=== PATIENT | male | born 1970 | race African-American/Black ===

== ENCOUNTER 2019-04-21 12:33 | Emergency (ER) | payer MEDICAID ==
[~2019-04-21] VITALS: Ht 180.3 cm; Wt 72.6 kg
[2019-04-21] MEDS ORDERED: SPIRIVA INH ×2 (13:07→14:15)
[2019-04-21] MEDS ORDERED: ADVAIR HFA 230M12 GM INH ×2 (13:07→14:14)
[2019-04-21] MEDS ORDERED: SYMBICORT80 MCG/4.1 INH ×2 (13:07→14:15)
[2019-04-21 13:28] LABS: ABSOLUTE EOSINOPHILS 0.1 thou/uL (0.0-0.7); ABSOLUTE LYMPHOCYTES 1.6 thou/uL (0.8-5.3); ABSOLUTE MONOCYTES 0.6 thou/uL (0.0-1.2); ABSOLUTE NEUTROPHILS 3.7 thou/uL (1.6-8.1); BASOPHILS 0.7 %; EOSINOPHILS 1.2 %; HEMATOCRIT 47.5 % (42.0-52.0); HEMOGLOBIN 16.5 gm/dL (14.0-18.0); LYMPHOCYTES 27.2 %; MCH 29.8 pg (26.0-34.0); MCHC 34.7 g/dL (28.0-37.0); MCV 85.9 fL (80.0-100.0); MONOCYTES 9.4 %; MPV 7.6 fl. (7.2-11.1); NUCLEATED RBCS 0 /100WBC; PLATELET COUNT* 204 thou/uL (150-400); POLYS 61.5 %; RBC 5.54 mil/uL (4.50-6.00); RDW-CV 13.7 % (10.5-14.5)
[2019-04-21 13:47] LABS: CALCIUM 8.8 mg/dL (8.5-10.1); POTASSIUM 4.1 mmol/L (3.5-5.1)
[2019-04-21 13:55] LABS: ALBUMIN 3.8 g/dL (3.4-5.0); TOTAL BILIRUBIN 0.7 mg/dL (<0.1-1.0); TOTAL PROTEIN 7.6 g/dL (6.4-8.2)
[2019-04-21 14:02] LABS: URINE BILIRUBIN NEGATIVE (Negative); URINE BLOOD NEGATIVE (Negative); URINE CLARITY CLEAR; URINE COLOR YELLOW; URINE GLUCOSE-RANDOM NEGATIVE (Negative); URINE KETONES NEGATIVE (Negative); URINE LEUKOCYTES-REFLEX NEGATIVE (Negative); URINE NITRITE-REFLEX NEGATIVE (Negative); URINE PROTEIN NEGATIVE (Negative); URINE SPECIFIC GRAVITY 1.015 (1.005-1.030); URINE UROBILINOGEN 0.2 E.U./dl (0.2-1.0)
[2019-04-21] MEDS ORDERED: PREDNISONE 10 M10 MG PO (14:15)
[2019-04-21] MEDS ORDERED: VENTOLIN HFA 1818 GM INH (14:15)
[2019-04-21] MEDS ORDERED: BILTRICIDE600 MG PO (14:22)
[2019-04-21 17:06] VITALS: BP 128/88
--- NOTE | 2019-04-22 09:31 | EKG ---
[place] [address] ELECTROCARDIOGRAM REPORT Name: CHANNING CANO Room: [facility]#: [id number] Admission: 04/21/19 Attend Phys: Discharge: 04/21/19 Date of : 72 Report #: [id number] THIS REPORT FOR: //name// [facility] ED Test Date: 2019-04-21 Test Time: 13:31:04 Pat Name: CHANNING CANO Department: Room: Gender: M [employer]: : 1970 Requested By: Chelsi Messina Order Number: [id number] MD: Sin Mcclendon Measurements Intervals [place] Rate: 86 P: 82 MS: 160 QRS: 62 QRSD: 71 T: 52 QT: 369 QTc: 442 Interpretive Statements Sinus rhythm Low voltage, extremity leads Anteroseptal infarct, old No previous ECG available for comparison Electronically Signed On 04-22-2019 9:31:18 [employer]ACHINE OPERATOR by Sin Mcclendon [email or web address] <ELECTRONICALLY SIGNED> By: Sin Mcclendon MD, [facility] 04/22/19 0931 1331 30 Sin Mcclendon MD, FACC /EPI
== END 2019-04-21 17:07 | disposition home or self-care (01) ==
LOC: M.ERS 12:33
PROVIDERS: Nurse Practitioner Family
DX: J44.9 Chronic obstructive pulmonary disease, unspecified (principal); K56.1 Intussusception; F17.210 Nicotine dependence, cigarettes, uncomplicated